=== PATIENT | female | born 1985 | race Two or more races ===

== ENCOUNTER 2017-01-02 05:28 | Inpatient (IN) | payer OTHER ==
--- NOTE | 2017-01-01 13:30 | MH ---
cc: MELISA JIANG DATE OF ADMISSION: 01/02/2017 HISTORY OF PRESENT ILLNESS She is 30 years old, 2, para 0-0-1-0, intrauterine at 40 weeks and 4 days, transverse lie, back up. care has been with [place] [facility], uncomplicated except for malpresentation. Group B Strep was negative. GCT was elevated. GTT was normal. Blood type O+. PAST OB HISTORY She is primigravid. PAST ELEMENTARY SCHOOL PRINCIPAL HISTORY She had a normal Pap smear in June of 2016. PAST MEDICAL HISTORY She denies hypertension, diabetes or asthma. PAST SURGICAL HISTORY She had right knee surgery. SOCIAL HISTORY She denies toxic habits currently. MEDICATIONS She takes vitamins. ALLERGIES No known drug allergies. PHYSICAL EXAMINATION VITAL SIGNS: Her vital signs are stable. Blood pressure is 110/70. She is 222 pounds. HEAD, HEART, CHEST, LUNG EXAMS: Within normal limits. ABDOMEN: Soft, nontender, gravid. PELVIC EXAM: Deferred at this time. EXTREMITIES: No edema, cyanosis, clubbing, nontender. ASSESSMENT AND PLAN She is 30 years old 1 excusing 2, para 0-0-1-0 intrauterine at 40 and 4/7 weeks with malpresentation, transverse lie back up. The risks, benefits and alternatives of the primary section have been explained to the patient. All of her questions have been answered. MD SANJUANA Chino/EVANGELINA /1:17 PM /1:28 PM
[~2017-01-02] VITALS: Ht 162.6 cm; Wt 99.0 kg
[2017-01-02] VITALS (15 sets, daily range): BP systolic 93–135; BP diastolic 50–81; PULSE 8–107; RESP 16–19; TEMP 97.5–98.7; O2SAT 97–100
[2017-01-02] MEDS ORDERED: LACTATED RINGER'S 1000 ML IV SCH (05:45)
[2017-01-02] MEDS ORDERED: LACTATED RINGER'S 1000 ML IV ONE (05:45)
[2017-01-02] MEDS ORDERED: ceFAZolin 2 GM PREMIX 50 ML IV SCH (05:45)
[2017-01-02] MEDS ORDERED: CITRIC ACID-SODIUM CITRATE LIQ 30 ML UDC PO SCH (05:45)
[2017-01-02] MEDS ORDERED: PRENTAB7 PO (05:51)
[2017-01-02 06:27] LABS: AUTOMATED NEUTROPHIL # 9.5 TH/MM3 (1.8-7.7); BASOPHIL % 0.1 % (0.0-2.0); EOSINOPHIL # 0.2 TH/MM3 (0-0.4); EOSINOPHIL % 1.8 % (0.0-4.0); HEMATOCRIT 40.5 % (35.0-46.0); HEMO FLAGS DIFF FINAL; LYMPH % 15.5 % (9.0-44.0); LYMPHOCYTE # 1.9 TH/MM3 (1.0-4.8); MEAN CELL VOLUME 88.6 FL (80.0-100.0); MEAN CORPUSCULAR HGB CONC 33.8 % (32.0-36.0); MONO % 5.8 % (0.0-8.0); NEUT % 76.8 % (16.0-70.0); PLATELET COUNT 153 TH/MM3 (150-450); RED BLOOD COUNT 4.57 MIL/MM3 (4.00-5.30); RED CELL DISTRIBUTION WIDTH 14.5 % (11.6-17.2); WHITE BLOOD COUNT 12.4 TH/MM3 (4.0-11.0)
[2017-01-02 06:40] LABS: BACTERIA, URINE RARE /hpf; BLOOD, URINE SMALL (NEG); COMMENT (UR) CULT NOT INDICATED; CULTURE IF INDICATED CULT NOT INDICATED; GLUCOSE,URINE NEG (NEG); KETONE, URINE NEG (NEG); MUCUS URINE FEW /lpf (OCC); NITRITE,URINE NEG (NEG); SQUAMOUS EPITHELIAL CELL URINE 8 /hpf (0-5); URINE COLOR YELLOW (YELLW/STRAW)
[2017-01-02] MEDS ORDERED: OXYTOCIN 10 UNIT/ML AMP ONE (07:38)
[2017-01-02] MEDS ORDERED: ACETAMINOPHEN 1000 MG/100 ML 100 ML IV ONE (07:38)
[2017-01-02] MEDS ORDERED: EPIDURAL-DIPHENHYDRAMINE HCL 50 MG/ML VIAL IV PUSH PRN (07:40)
[2017-01-02] MEDS ORDERED: EPIDURAL-DO NOT ADMINISTER ANTICOAGULANTS PRN (07:40)
[2017-01-02] MEDS ORDERED: EPIDURAL-DIPHENHYDRAMINE HCL 50 MG CAP PO PRN (07:40)
[2017-01-02] MEDS ORDERED: EPIDURAL-NALOXONE HCL 0.4 MG/ML AMP IV PUSH PRN (07:40)
[2017-01-02] MEDS ORDERED: EPIDURAL-NO SYSTEMIC NARCOTICS PRN (07:40)
[2017-01-02] MEDS ORDERED: MISOPROSTOL 200 MCG TAB ONE (08:09)
[2017-01-02] MEDS ORDERED: OXYTOCIN 30 UNITS-500ML PREMIX 500 ML ONE (08:11)
--- NOTE | 2017-01-02 08:36 | PD.OB.DELI ---
Procedure Note Section Procedure Performed by Carol Barclay Procedure: Primary Low Transverse Sec Indication for delivery: malposition (transverse lie back up) Previous condition: None Informed consent obtained: For procedure Confirmed correct: Time-out taken Anesthesia: Spinal Urinary catheter: Inserted using sterile technique Sterile preparation: Duraprep Position: Supine with wedge to right side Operative Features Skin Incision: Pfannenstiel Uterine Incision: Low transverse w/knife / scissors Membranes Ruptured: Artificially Presentation: Breech Delivery date: Jan 02, 2017 Delivery time: 08:04 Delivery of infant: Uneventful : Female One Minute : 9 Five Minute : 9 Weight: 7-4 Status of : Viable Placenta delivered: Intact Medications: Oxytocin Estimated blood loss: 300cc Procedure tolerated: Well Maternal Condition: Stable Condition: Stable Procedure in detail primary lower segment transverse section done in usual fashion, repaired uterus in 2 layers, excellent hemostasis, fascia closed in running fashion, skin closed with tamir, pt to RR stable Carol Barclay MD Jan 02, 2017 08:36
[2017-01-02] MEDS ORDERED: oxyCODONE/ACETAMINOPHEN 5 MG/325 MG TAB PO PRN (08:45)
[2017-01-02] MEDS ORDERED: ONDANSETRON HCL 4 MG/2 ML VIAL IV PUSH PRN (08:45)
[2017-01-02] MEDS ORDERED: ACETAMINOPHEN 325 MG TAB PO PRN (08:45)
[2017-01-02] MEDS ORDERED: SODIUM CHLORIDE 0.9% FLUSH 10 ML FLUSH IV FLUSH PRN (08:45)
[2017-01-02] MEDS ORDERED: KETOROLAC TROMETHAMINE 60 MG/2 ML (IM) VIAL IM PRN (08:45)
[2017-01-02] MEDS ORDERED: SIMETHICONE 80 MG CHEWABLE TAB PO PRN (08:45)
[2017-01-02] MEDS ORDERED: OXYTOCIN 30 UNITS-500ML PREMIX 500 ML IV ONE (08:45)
[2017-01-02] MEDS ORDERED: ZOLPIDEM TARTRATE 5 MG TAB PO PRN (08:45)
[2017-01-02] MEDS: SODIUM CHLORIDE 0.9% FLUSH 10 ML FLUSH IV FLUSH SCH (09:00)
[2017-01-02] MEDS ORDERED: LACTATED RINGER'S 1000 ML INJ 1,000 ML IV SCH (13:31)
[2017-01-02] MEDS ORDERED: OXYTOCIN 30 UNITS-500ML PREMIX 500 ML IV PRN (18:45)
[2017-01-02] MEDS: oxyCODONE/ACETAMINOPHEN 5 MG/325 MG TAB PO PRN (23:00)
[2017-01-02] MEDS: DOCUSATE SODIUM 50 MG/SENNA 8.6 MG TAB PO PRN (23:00)
[2017-01-02] MEDS: IBUPROFEN 600 MG TAB PO PRN (23:01)
[2017-01-03 01:22] VITALS: BP 101/60; PULSE 101; RESP 20; TEMP 98.4
[2017-01-03 07:07] LABS: AUTOMATED NEUTROPHIL # 9.4 TH/MM3 (1.8-7.7); BASOPHIL % 0.3 % (0.0-2.0); EOSINOPHIL # 0.2 TH/MM3 (0-0.4); EOSINOPHIL % 1.6 % (0.0-4.0); HEMO FLAGS DIFF FINAL; LYMPH % 14.9 % (9.0-44.0); LYMPHOCYTE # 1.8 TH/MM3 (1.0-4.8); MEAN CELL VOLUME 89.6 FL (80.0-100.0); MEAN CORPUSCULAR HEMOGLOBIN 31.2 PG (27.0-34.0); MEAN CORPUSCULAR HGB CONC 34.8 % (32.0-36.0); NEUT % 76.2 % (16.0-70.0); PLATELET COUNT 134 TH/MM3 (150-450); RED CELL DISTRIBUTION WIDTH 14.5 % (11.6-17.2); WHITE BLOOD COUNT 12.3 TH/MM3 (4.0-11.0)
[2017-01-03] MEDS: oxyCODONE/ACETAMINOPHEN 5 MG/325 MG TAB PO PRN ×3 (07:16→18:38)
[2017-01-03] MEDS: IBUPROFEN 600 MG TAB PO PRN ×3 (07:16→18:39)
[2017-01-03 08:00] VITALS: BP 124/73; PULSE 96; RESP 18; TEMP 99.1
[2017-01-03] MEDS: SODIUM CHLORIDE 0.9% FLUSH 10 ML FLUSH IV FLUSH SCH (09:00)
[2017-01-03] MEDS ORDERED: OXYC1TAB63 PO (13:46)
[2017-01-03] MEDS ORDERED: IBUP-232 PO (13:46)
--- NOTE | 2017-01-03 13:46 | HHI.OB ---
Subjective Post Operative Day: 1 Remarks Doing well, Bleeding is normal Pain is well controlled Tolerating diet. Objective Vitals/I&O Vital Signs Date Time Temp Pulse Resp B/P (MAP) Pulse Ox O2 Delivery O2 Flow Rate FiO2 01/03/17 08:00 99.1 96 18 01/03/17 08:00 124/73 (90) 01/03/17 08:00 96 01/03/17 01:22 98.4 101 20 101/60 (74) 01/03/17 00:01 18 01/03/17 00:01 18 01/02/17 22:00 107 18 114/71 (85) 01/02/17 21:46 98.7 01/02/17 15:00 97.9 80 16 118/72 (87) Result Diagram: 01/03/17 0546 Objective Remarks GENERAL: Well-nourished, well-developed patient. CARDIOVASCULAR: Regular rate and rhythm without murmurs, gallops, or rubs. RESPIRATORY: Breath sounds equal bilaterally. No accessory muscle use. ABDOMEN/GI: Abdomen soft, non-tender, bowel sounds present. Incision: Clean, dry and intact. Fundus: Firm, non-tender at umbilicus. GENITOURINARY: Light to moderate bleeding. EXTREMITIES: No cyanosis or edema, non-tender, without signs of DVT. Medications and IVs Current Medications Medications (Trade) Dose Ordered Sig/Ree Route Start Time Stop Time Status Last Admin Oxytocin 500 ml @ 100 mls/hr UNSCH X1 PRN IV 01/02/17 18:45 01/03/17 18:44 (NS Flush) 2 ml BID IV FLUSH 01/02/17 09:00 (NS Flush) 2 ml UNSCH PRN IV FLUSH 01/02/17 08:45 (Mylicon Chew) 80 mg QID PRN PO 01/02/17 08:45 (Tylenol) 650 mg Q6H PRN PO 01/02/17 08:45 (Motrin) 600 mg Q6H PRN PO 01/02/17 08:45 01/03/17 13:08 (Percocet 5-325 Mg) 1 tab Q4H PRN PO 01/02/17 08:45 01/03/17 13:06 (Percocet 5-325 Mg) 2 tab Q4H PRN PO 01/02/17 08:45 (Gracie-Colace) 2 tab Q12H PRN PO 01/02/17 08:45 01/02/17 23:00 (Ambien) 5 mg HS PRN PO 01/02/17 08:45 (M-M-R Ii Inj) 0.5 ml ONCE ONCE SQ 01/03/17 16:00 01/03/17 16:01 (Boostrix Inj) 0.5 ml ONCE ONCE IM 01/03/17 16:00 01/03/17 16:01 (Zofran Inj) 4 mg Q6H PRN IV PUSH 01/02/17 08:45 Assessment/Plan Problem List: (1) Transverse lie of fetus ICD Codes: O32.2XX0 - Maternal care for transverse and oblique lie, not applicable or unspecified (2) Liveborn by ICD Codes: Z38.01 - Single liveborn infant, delivered by Assessment and Plan POD #1 Doing well Home Thursday and d/c tamir. Yanely Kc MD Jan 03, 2017 13:46
--- NOTE | 2017-01-03 13:48 | HHI.DCPOC ---
Discharge Care Plan Diagnosis: (1) Transverse lie of fetus (2) Liveborn by Report Symptoms to Your Doctor -Temperature above 100.5 degrees -Redness, of incision or excessive or foul smelling drainage -Unusual pain or calf pain -Increased vaginal bleeding -Painful or difficulty urinating -Feelings of extreme sadness or anxiety after 2 weeks Goals to Promote Your Health * To prevent worsening of your condition and complications * To maintain your health at the optimal level Directions to Meet Your Goals Take your medications as prescribed Follow your dietary instruction Follow activity as directed Ensure plenty of rest for recovery Drink fluids for hydration Keep your appointments as scheduled Take your immunizations and boosters as scheduled If your symptoms worsen call your PCP, if no PCP go to Urgent Care Center or Emergency Room Smoking is Dangerous to Your Health. Avoid second hand smoke Call the 24-hour crisis hotline for domestic abuse at Yanely Kc MD Jan 03, 2017 13:48
[2017-01-03] MEDS ORDERED: DIPHTH/TETANUS/ACEL PERTUSSIS (BOOSTER) 0.5 ML VIAL/PFS IM ONE (16:00)
[2017-01-03] MEDS ORDERED: MEASLES, MUMPS, RUBELLA VACCINE 0.5 ML VIAL SQ ONE (16:00)
[2017-01-03] MEDS: DOCUSATE SODIUM 50 MG/SENNA 8.6 MG TAB PO PRN (18:38)
[2017-01-03 20:40] VITALS: BP 93/66; PULSE 94; RESP 16; TEMP 98.3
[2017-01-04] MEDS: IBUPROFEN 600 MG TAB PO PRN ×4 (00:16→17:47)
[2017-01-04] MEDS: oxyCODONE/ACETAMINOPHEN 5 MG/325 MG TAB PO PRN ×4 (00:16→17:47)
[2017-01-04 07:30] VITALS: BP 131/81; PULSE 91; RESP 18; TEMP 98.7
[2017-01-04] MEDS: DOCUSATE SODIUM 50 MG/SENNA 8.6 MG TAB PO PRN (17:47)
[2017-01-04 20:30] VITALS: BP 111/70; PULSE 88; RESP 18; TEMP 98
[2017-01-05] MEDS: IBUPROFEN 600 MG TAB PO PRN ×3 (00:27→15:27)
[2017-01-05] MEDS: oxyCODONE/ACETAMINOPHEN 5 MG/325 MG TAB PO PRN ×3 (00:28→15:26)
[2017-01-05] MEDS: DOCUSATE SODIUM 50 MG/SENNA 8.6 MG TAB PO PRN (07:15)
--- NOTE | 2017-01-05 08:19 | HHI.OB ---
Subjective Post Operative Day: 3 Remarks Doing very well ready for tamir out plans to nurse Objective Vitals/I&O Vital Signs Date Time Temp Pulse Resp B/P (MAP) Pulse Ox O2 Delivery O2 Flow Rate FiO2 01/04/17 20:30 98.0 88 18 111/70 (84) Result Diagram: 01/03/17 0546 Objective Remarks GENERAL: Well-nourished, well-developed patient. CARDIOVASCULAR: Regular rate and rhythm without murmurs, gallops, or rubs. RESPIRATORY: Breath sounds equal bilaterally. No accessory muscle use. ABDOMEN/GI: Abdomen soft, non-tender, bowel sounds present. Incision: Clean, dry and intact. Fundus: Firm, non-tender at umbilicus. GENITOURINARY: Light to moderate bleeding. EXTREMITIES: No cyanosis or edema, non-tender, without signs of DVT. Medications and IVs Current Medications Medications (Trade) Dose Ordered Sig/Ree Route Start Time Stop Time Status Last Admin (NS Flush) 2 ml BID IV FLUSH 01/02/17 09:00 (NS Flush) 2 ml UNSCH PRN IV FLUSH 01/02/17 08:45 (Mylicon Chew) 80 mg QID PRN PO 01/02/17 08:45 (Tylenol) 650 mg Q6H PRN PO 01/02/17 08:45 (Motrin) 600 mg Q6H PRN PO 01/02/17 08:45 01/05/17 07:15 (Percocet 5-325 Mg) 1 tab Q4H PRN PO 01/02/17 08:45 01/05/17 07:15 (Percocet 5-325 Mg) 2 tab Q4H PRN PO 01/02/17 08:45 (Gracie-Colace) 2 tab Q12H PRN PO 01/02/17 08:45 01/05/17 07:15 (Ambien) 5 mg HS PRN PO 01/02/17 08:45 (Zofran Inj) 4 mg Q6H PRN IV PUSH 01/02/17 08:45 Assessment/Plan Problem List: (1) Transverse lie of fetus ICD Codes: O32.2XX0 - Maternal care for transverse and oblique lie, not applicable or unspecified Qualifiers: Qualified Codes: O32.2XX0 - Maternal care for transverse and oblique lie, not applicable or unspecified (2) Liveborn by ICD Codes: Z38.01 - Single liveborn , delivered by Assessment and Plan POD #1 Doing well Home Thursday and d/c tamir. POD #3 Doing well with nursing baby's bili declining ready for discharge after tamir removed desires MARKD Naomi Guy MD Jan 05, 2017 08:19
[2017-01-05 09:10] VITALS: BP 121/69; PULSE 81; RESP 18; TEMP 98.8
== END 2017-01-05 16:44 | disposition home or self-care (01) | DRG 766 ==
LOC: H2EB 05:28 → EDSTATUS 07:30 → H1EA 10:29
PROVIDERS: ADMIT Obstetrics & Gynecology; ATTEND Obstetrics & Gynecology
PROC: 10D00Z1 Extraction of Products of Conception, Low, Open Approach (ICD-10-PCS; principal; 2017-01-02)
DX: O32.2XX0 Maternal care for transverse and oblique lie, not applicable or unspecified (principal); Z37.0 Single live birth; Z3A.40 40 weeks gestation of pregnancy
CPT/HCPCS: 76815; 80307; 81001; 85025; 86850; 86900; 86901; 90715; J0131; J2590; J3010; J7120